=== PATIENT | female | born 1995 | race African-American/Black ===

== ENCOUNTER → 2019-04-19 | Outpatient (CLI) | payer OTHER ==
--- NOTE | 2019-04-19 12:56 | CONS ---
Assessment/Plan Assessment/Plan Hospital Course (Demo Recall) 23-year-old female with 3 months of left hip and thigh pain. On examination today most of her pain appears to be extra-articular. This includes greater trochanteric bursitis and iliotibial band tendinitis despite the MRI being negative for this. The MRI does have suspicion of a small labral tear. I am not certain that this is clinically significant at this time. She also has numbness and tingling which would not be related to the hip but to the lower back. At this time I would like her to start physical therapy for her greater trochanteric bursitis. She is not able to take NSAIDs secondary to severe allergy. Therefore I am recommending acetaminophen 1 g every 8 hours. If physical therapy fails to improve her symptoms We will likely order an MR arthrogram of the left hip to better evaluate for this potential labral tear. 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 The pain is mostly lateral but at times in the groin. She does note that pain, numbness, and tingling radiates down to the knee. Previously it was going down to her toes. Patient denies any specific injury but notes after participating in [employer]. Her pain is rated 8/10. Denies any mechanical symptoms in the hip. Denies any back pain. Any movement causes pain. She has pain when she sleeps at night. She is unable to lie on the affected side. The only thing that makes the pain better is smoking marijuana. She cannot take NSAIDs secondary to allergy which causes difficulty breathing. She is been using crutches secondary to a limp. She brings in an MRI disc and report from an outside facility. Patient denies fever, chills, shortness of breath, chest pain, nausea/vomiting, constipation, diarrhea. Positive numbness and tingling. Past Medical History Medical History: no pertinent history Past Surgical History Past Surgical Hx: no surgical history Social History Alcohol Use: other Smoking Status: Current every day smoker Drug Use: marijuana Exam/Review of Systems Exam Vitals Weight: 139 pounds Height: 5 foot 4 Temperature: 90 point Heart Rate: 91 Blood Pressure: 109/69 Respiratory Rate: 12 Exam General: Patient is altered, smells of marijuana. Patient is unfocused. In no acute distress, pleasant and cooperative Heart: regular rhythm Lungs: breathing comfortably, no tachypnea or dyspnea Musculoskeletal: Well developed female in no apparent distress. Gait demonstrates an antalgic components and no short leg component. Standing, the pelvis is level and supine there is no. There is tenderness over trochanteric bursa or IT band. There is tenderness palpation over the anterior proximal thigh and inguinal ligament. ----- Range of motion: Flexion: 130 Extension: 0 Internal rotation: 30 External rotation: 60 Abduction: 60 Adduction: 15 ----- Sitting there is no pelvic obliquity. Pain at the extremes of motion of the affected hip. Skin was intact throughout both lower extremities. Sensation intact to light touch in a sural, saphenous, deep peroneal, superficial peroneal, medial and lateral p lantar nerve distribution. Neurovascular exam showed 5/5 strength in the abductors, quads, EHL/tibialis anterior/gastroc. Normal and symmetrical pulses were palpated in both the dorsalis pedis and posterior tibial arteries. There is no sign of venous stasis. Imaging Imaging MRI of the left hip and left femur were personally reviewed. MRI dated . Demonstrate small focus of partial detachment of left superior to posterior labrum. No acute fracture or stress reaction. No AVN. No degenerative changes within the left hip. No significant joint effusion. There is minimal gluteus minimus tendinosis. Gluteus medius, rectus femoris, iliopsoas, hamstring origins are intact. No greater trochanteric or iliopsoas bursitis. TRINY HOLLEY MD Apr 19, 2019 12:56
== END | disposition home or self-care (01) ==
LOC: HKI 10:51
PROVIDERS: ATTEND Orthopaedic Surgery Adult Reconstructive Orthopaedic Surgery
DX: M25.552 Pain in left hip (principal); M79.652 Pain in left thigh; M70.60 Trochanteric bursitis, unspecified hip; M76.829 Posterior tibial tendinitis, unspecified leg; R20.0 Anesthesia of skin; R20.2 Paresthesia of skin; F12.90 Cannabis use, unspecified, uncomplicated
CPT/HCPCS: G0463